=== PATIENT | male | born 1990 | race Caucasian/White ===

== ENCOUNTER 2018-12-25 03:56 | Emergency (ER) | payer OTHER ==
[~2018-12-25] VITALS: Ht 177.8 cm; Wt 99.8 kg
[~2018-12-25 03:56] MED LIST: CRUTCH USE; HYDACE5 PO; HYDR1TAB94 PO; IBUP400 PO; IBUP600 PO; METPRE4DP PO
[2018-12-25] MEDS ORDERED: AMOX875 (05:04)
[2018-12-25] MEDS ORDERED: Cleocin HCl300 MG PO (07:02)
== END 2018-12-25 07:12 | disposition home or self-care (01) ==
LOC: ER 03:56
DX: K04.7 Periapical abscess without sinus (principal); F17.210 Nicotine dependence, cigarettes, uncomplicated
CPT/HCPCS: 99282; A9270

== ENCOUNTER 2020-10-22 16:23 | Emergency (ER) | payer OTHER ==
[~2020-10-22] VITALS: Ht 177.8 cm; Wt 99.8 kg
[~2020-10-22 16:23] MED LIST changes: +AMOX875; +Cleocin HCl300 MG PO
[2020-10-22] MEDS ORDERED: Bactrim Ds Tab1 EACH PO ×2 (16:37→16:38)
[2020-10-22] MEDS ORDERED: CEPH500 PO ×2 (16:37→16:38)
== END 2020-10-22 16:39 | disposition home or self-care (01) ==
LOC: ER 16:23
DX: L01.00 Impetigo, unspecified (principal); B95.8 Unspecified staphylococcus as the cause of diseases classified elsewhere; F17.210 Nicotine dependence, cigarettes, uncomplicated
CPT/HCPCS: 99282

== ENCOUNTER 2022-10-24 10:26 | Emergency (ER) | payer OTHER ==
[~2022-10-24] VITALS: Ht 177.8 cm; Wt 104.3 kg
[~2022-10-24 10:26] MED LIST changes: +Bactrim Ds Tab1 EACH PO; +CEPH500 PO
[2022-10-24 10:40] VITALS: BP 144/103
[2022-10-24] MEDS ORDERED: METH10 PO ×2 (10:44)
[2022-10-24] MEDS ORDERED: SUBOXONE 8 MG-1 EACH SL (11:34)
[2022-10-24] MEDS ORDERED: MUPIROCIN1 G1 TOP (11:42)
== END 2022-10-24 12:10 | disposition home or self-care (01) ==
LOC: ER 10:26
DX: F11.90 Opioid use, unspecified, uncomplicated (principal); L01.00 Impetigo, unspecified; F17.210 Nicotine dependence, cigarettes, uncomplicated
CPT/HCPCS: 99281; J0572